=== PATIENT | female | born 1995 | race Caucasian/White ===

== ENCOUNTER 2020-09-15 23:26 | Outpatient (CLI) | payer OTHER ==
[~2020-09-15 23:26] MED LIST: FERROUS SULFAT325 MG PO; FIORICET TAB1 EA PO; PRENATAL VITAM1 EAC3 PO
[2020-09-16 00:19] LABS: HEMOGLOBIN 11.4 gm/dl (12.3-15.3); RED BLOOD COUNT 3.8 M/UL (4.00-5.10); WHITE BLOOD COUNT 9.1 K/UL (4.5-11.0)
[2020-09-17 02:57] LABS: URINE TOTAL PROTEIN 8 mg/dl
== END 2020-09-16 04:10 | disposition home or self-care (01) ==
LOC: GENOP 23:26
PROVIDERS: Obstetrics & Gynecology
DX: O16.9 Unspecified maternal hypertension, unspecified trimester (principal); O99.891 Other specified diseases and conditions complicating pregnancy; M79.89 Other specified soft tissue disorders; R51.9 Headache, unspecified
CPT/HCPCS: 81001; 82247; 82248; 82565; 82570; 84156; 84450; 84460; 84550; 85025; 85379; 85384; 85610; 85730; 96366; 96367; G0463; J7121

== ENCOUNTER → 2020-09-17 | Outpatient (CLI) | payer OTHER ==
[~2020-09-17] MED LIST changes: +DOCUSATE SODIU100 MG PO; +HYDROCODON-ACE1 EAC4 PO; +IBUPROFEN600 MG PO; +[UNRECOGNIZED DRUG - REMARK]
== END ==
LOC: GENOP 00:05
DX: O26.893 Other specified pregnancy related conditions, third trimester (principal); R51.9 Headache, unspecified; H53.8 Other visual disturbances; R03.0 Elevated blood-pressure reading, without diagnosis of hypertension; O99.213 Obesity complicating pregnancy, third trimester; E66.01 Morbid (severe) obesity due to excess calories; O99.013 Anemia complicating pregnancy, third trimester; Z3A.37 37 weeks gestation of pregnancy
CPT/HCPCS: G0463

== ENCOUNTER 2020-09-30 13:12 | Outpatient (CLI) | payer OTHER ==
[~2020-09-30 13:12] MED LIST changes: -DOCUSATE SODIU100 MG PO; -HYDROCODON-ACE1 EAC4 PO; -IBUPROFEN600 MG PO; -[UNRECOGNIZED DRUG - REMARK]
[2020-09-30 14:24] LABS: HEMOGLOBIN 12.1 gm/dl (12.3-15.3); RED BLOOD COUNT 4.01 M/UL (4.00-5.10); WHITE BLOOD COUNT 8.7 K/UL (4.5-11.0)
[2020-10-01] MEDS ORDERED: IBUPROFEN600 MG PO (08:00)
[2020-10-01] MEDS ORDERED: HYDROCODON-ACE1 EAC4 PO (08:00)
[2020-10-01] MEDS ORDERED: DOCUSATE SODIU100 MG PO (08:00)
== END 2020-09-30 14:13 | disposition home or self-care (01) ==
LOC: GENOP 13:12
PROVIDERS: Obstetrics & Gynecology
DX: Z53.8 Procedure and treatment not carried out for other reasons (principal)
CPT/HCPCS: 36415; 81001; 85025; J7120

== ENCOUNTER 2020-10-01 05:16 | Inpatient (IN) | payer OTHER ==
[~2020-10-01] VITALS: Ht 165.1 cm; Wt 121.1 kg
[2020-10-01] MEDS ORDERED: IBUPROFEN600 MG PO (08:00)
[2020-10-01] MEDS ORDERED: HYDROCODON-ACE1 EAC4 PO (08:00)
[2020-10-01] MEDS ORDERED: DOCUSATE SODIU100 MG PO (08:00)
[2020-10-01 13:09] LABS: HEMOGLOBIN 10.6 gm/dl (12.3-15.3)
[2020-10-02] MEDS ORDERED: HYDROCODON-ACE1 EAC4 PO (12:22)
== END 2020-10-02 14:46 | disposition home or self-care (01) | DRG 787 ==
LOC: OB
PROVIDERS: Obstetrics & Gynecology; ADMIT Obstetrics & Gynecology
PROC: 6A550ZT Pheresis of Cord Blood Stem Cells, Single (ICD-10-PCS; 2020-10-01)
PROC: 3E0234Z Introduction of Serum, Toxoid and Vaccine into Muscle, Percutaneous Approach (ICD-10-PCS; 2020-10-01)
PROC: 10D00Z1 Extraction of Products of Conception, Low, Open Approach (ICD-10-PCS; principal; 2020-10-01 07:30)
PROC: 3E02340 Introduction of Influenza Vaccine into Muscle, Percutaneous Approach (ICD-10-PCS; 2020-10-02)
PROC: 3E0234Z Introduction of Serum, Toxoid and Vaccine into Muscle, Percutaneous Approach (ICD-10-PCS; 2020-10-02)
DX: O34.211 Maternal care for low transverse scar from previous cesarean delivery (principal); S32.9XXA Fracture of unspecified parts of lumbosacral spine and pelvis, initial encounter for closed fracture; N85.8 Other specified noninflammatory disorders of uterus; Z3A.39 39 weeks gestation of pregnancy; Z37.0 Single live birth; Z20.822 Contact with and (suspected) exposure to COVID-19; O9A.212 Injury, poisoning and certain other consequences of external causes complicating pregnancy, second trimester; Z23 Encounter for immunization
CPT/HCPCS: 36415; 81001; 82800; 85014; 85018; 85025; 90471; 90686; 90707; 90715; C9113; G0008; J0690; J1650; J1885; J2274; J2300; J2370; J2405; J2590; J3010; J7120; U0003

== ENCOUNTER 2020-10-05 15:41 | Emergency (ER) | payer OTHER ==
[~2020-10-05 15:41] MED LIST changes: +DOCUSATE SODIU100 MG PO; +HYDROCODON-ACE1 EAC4 PO; +IBUPROFEN600 MG PO
[2020-10-05 18:48] LABS: HEMOGLOBIN 9.7 gm/dl (12.3-15.3); RED BLOOD COUNT 3.27 M/UL (4.00-5.10); WHITE BLOOD COUNT 6.2 K/UL (4.5-11.0)
[2020-10-05 19:07] LABS: BUN/CREATININE RATIO 16 (0-10)
[2020-10-05] MEDS ORDERED: [UNRECOGNIZED DRUG - REMARK] (20:36)
== END 2020-10-05 21:00 | disposition home or self-care (01) ==
LOC: ER1 15:41
PROVIDERS: Emergency Medicine
DX: R06.00 Dyspnea, unspecified (principal); M54.9 Dorsalgia, unspecified; M79.89 Other specified soft tissue disorders
CPT/HCPCS: 36415; 80053; 82550; 82553; 83874; 83880; 84484; 85025; 85379; 93005; 99285; Q9967

== ENCOUNTER → 2020-10-14 | Outpatient (CLI) | payer OTHER ==
[~2020-10-14] MED LIST changes: +[UNRECOGNIZED DRUG - REMARK]
== END ==
LOC: ECHO 12:49
DX: R06.02 Shortness of breath (principal); R60.0 Localized edema; I34.0 Nonrheumatic mitral (valve) insufficiency; R79.89 Other specified abnormal findings of blood chemistry
CPT/HCPCS: ECHO; 93306